=== PATIENT | male | born 1985 | race Two or more races ===

== ENCOUNTER 2022-12-02 08:00 | Emergency (ER) | payer OTHER ==
[~2022-12-02] VITALS: Ht 167.6 cm; Wt 90.7 kg
[~2022-12-02 08:00] MED LIST: HYDR-4275; TAMS-12
--- NOTE | 2022-12-02 08:10 | NUR ---
Patient bibra from home, c/o flank pain Hx kidney stone. On room air, breathing evenly and unlabored. Kept comfortable will continue to monitor accordingly.
[2022-12-02] MEDS ORDERED: KETOROLAC TROMETHAMINE 15 MG/ML VIAL ONE ×2 (08:19→10:49)
[2022-12-02] MEDS: IV NS 0.9% 1,000 ML IV ONE (08:20)
[2022-12-02] MEDS: KETOROLAC TROMETHAMINE INJ 30 MG/ML VIAL IV ONE ×2 (08:20→10:53)
[2022-12-02 08:45] LABS: BASOPHILS # (AUTO) 0.1 K/uL (0.0-0.2); BASOPHILS % (AUTO) 0.4 % (0.0-2.0); EOSINOPHILS % (AUTO) 0.4 % (0.0-6.0); HEMATOCRIT 46 % (39-51); HEMOGLOBIN 15.6 g/dL (13.5-17.5); LYMPHOCYTES # (AUTO) 4.1 K/uL (0.8-4.8); LYMPHOCYTES % (AUTO) 21.3 % (20.0-44.0); MEAN CORPUSCULAR HGB CONC 34 g/dl (31.0-36.0); MEAN CORPUSCULAR VOLUME 85 fL (80-96); MONOCYTES # (AUTO) 1.2 K/uL (0.1-1.30); NEUTROPHILS # (AUTO) 13.8 K/uL (1.8-8.9); NEUTROPHILS % (AUTO) 71.9 % (43.0-81.0); PLATELET COUNT (AUTO) 297 K/uL (150-450); RED BLOOD CELL COUNT(AUTO) 5.41 MIL/uL (4.5-6.0); WHITE BLOOD COUNT (AUTO) 19.2 K/uL (4.3-11.0)
--- NOTE | 2022-12-02 09:00 | NUR ---
Urine collected and sent to lab
[2022-12-02 09:06] LABS: ALBUMIN 4.3 g/dL (3.4-5.0); BILIRUBIN,DIRECT 0.2 mg/dL (0.0-0.2); BILIRUBIN,TOTAL 1.2 mg/dL (0.2-1.0); CALCIUM, SERUM 9.4 mg/dL (8.5-10.1); CREATININE 0.8 mg/dL (0.6-1.3); POTASSIUM 3.9 mmol/L (3.5-5.1); TOTAL PROTEIN, SERUM 7.8 g/dL (6.4-8.2)
[2022-12-02] MEDS ORDERED: ONDANSETRON HCL/PF 4 MG/2 ML VIAL ONE (09:18)
[2022-12-02] MEDS ORDERED: FENTANYL PF 100MCG/2ML AMPUL ONE (09:19)
[2022-12-02] MEDS: ONDANSETRON HCL/PF 4 MG/2 ML VIAL IV ONE (09:33)
[2022-12-02] MEDS: FENTANYL PF 100MCG/2ML AMPUL IV ONE (09:33)
[2022-12-02 10:24] LABS: BILIRUBIN,URINE SMALL (NEGATIVE); COLOR,URINE AMBER (YELLOW); PROTEIN,URINE >300 mg/dl (NEGATIVE); UGLUCOSE NEGATIVE (NEGATIVE)
[2022-12-02 10:25] LABS: LEUKOCYTE ESTERASE ,URINE NEGATIVE (NEGATIVE); NITRITE, URINE NEGATIVE (NEGATIVE)
[2022-12-02 10:51] LABS: BACTERIA,URINE 2+ /HPF (None Seen); WBC,URINE 0-2 /HPF (0-3)
[2022-12-02 10:52] LABS: SQUAMOUS EPITHELIAL CELL,UR Few /HPF (None Seen); URINE AMORPHOUS URATE Many /HPF (None Seen)
[2022-12-02 10:53] LABS: RBC,URINE 51-80 /HPF (0-2)
--- NOTE | 2022-12-02 11:18 | NUR ---
CALLED DR. FERNANDES [phone] LEFT VM
[2022-12-02] MEDS ORDERED: ONDA4TAB5 PO (11:42)
[2022-12-02] MEDS ORDERED: HYDR-4209 PO (11:42)
[2022-12-02] MEDS ORDERED: IBUP-1955 PO (11:42)
[2022-12-02] MEDS ORDERED: TAMS-12 PO (11:42)
[2022-12-02 12:01] VITALS: BP 128/89
== END 2022-12-02 12:05 | disposition home or self-care (01) ==
LOC: ER 08:02
DX: N20.0 Calculus of kidney (principal); N23 Unspecified renal colic; N13.30 Unspecified hydronephrosis; K57.30 Diverticulosis of large intestine without perforation or abscess without bleeding; F41.9 Anxiety disorder, unspecified; Z87.442 Personal history of urinary calculi
CPT/HCPCS: 99285; 74176; 96374; 76770; 96375; 96361; 96376; 85025; 80048; 87086; 83690; 80076; 81001; 36415; J3010; J2405; J7030; J1885 ×2